=== PATIENT | male | born 1950 | race Caucasian/White ===

== ENCOUNTER 2021-04-07 15:42 | Inpatient (IN) | payer MEDICARE ==
[~2021-04-07] VITALS: Ht 177.8 cm; Wt 93.1 kg
[~2021-04-07 15:42] MED LIST: ASPIRIN ADULT L81 M1 PO; ATARAX,VISTARIL50 MG PO; FISH OIL 1,0001 EAC4 PO; GLUCOTROL XL10 MG PO; HYDRALAZINE10 MG PO; ISORDIL10 M1 PO; LACTULOSE20 GM/30 M PO; LANTUS SOL100 UNIT/1 SC; MELATONIN5 M7 PO; METOPROLOL SUCC25 M2 PO; OLANZAPINE5 MG PO; PRAVASTATIN SOD40 MG PO; VITAMIN D250 MCG PO; XARE15TA PO; ZYPREXA2.5 MG PO
[2021-04-07 16:11] VITALS: BP 137/59
[2021-04-07 16:38] LABS: BASO % 0.2 % (0.0-1.0); EOS # 0.1 10*3/uL (0.0-0.4); HEMATOCRIT 33.2 % (42.0-52.0); LYMPH % 9.1 % (27.0-41.0); MEAN CELL VOLUME 101.5 fl (80.0-94.0); MEAN CORPUSCULAR HGB 31.2 pg (27.0-31.0); MEAN CORPUSCULAR HGB CONC 30.7 g/dl (33.0-37.0); MEAN PLATELET VOLUME 11.6 fl (9.6-12.3); MONO % 9.2 % (3.0-9.0); NEUT # 8.9 10*3/uL (2.3-7.9); NEUT % 79.3 % (47.0-73.0); PLATELET COUNT AUTOMATED 135 10*3/uL (130-400); RED BLOOD COUNT 3.27 10*6/uL (4.50-5.90); RED CELL DISTRI WIDTH 13.5 % (0-14.5); WHITE BLOOD COUNT 11.2 10*3/uL (4.8-10.8)
[2021-04-07 16:52] VITALS: BP 121/55
[2021-04-07 16:52] LABS: CREATININE 2.92 mg/dL (0.70-1.30); POTASSIUM 4.7 mmol/L (3.5-5.1); TOTAL PROTEIN 5.9 gm/dL (6.4-8.2)
[2021-04-07 17:04] LABS: TOTAL CELLS COUNTED 100 #CELLS
[2021-04-07 17:05] LABS: PLATELET SUFFICIENCY NORMAL (NORMAL)
[2021-04-07] MEDS ORDERED: BIKTARVY 50-201 EACH PO (17:41)
[2021-04-07] MEDS ORDERED: ISORDIL10 M1 PO (17:46)
[2021-04-07] MEDS ORDERED: VITAMIN D350 MC2 PO (17:52)
[2021-04-07 18:37] VITALS: BP 115/58
[2021-04-07 20:00] VITALS: BP 134/82
[2021-04-08] VITALS: BP 161/51
[2021-04-08 06:47] LABS: CREATININE 2.89 mg/dL (0.70-1.30); TOTAL PROTEIN 6.3 gm/dL (6.4-8.2)
[2021-04-08 07:40] LABS: BASO % 0.3 % (0.0-1.0); EOS % 0.3 % (1.0-4.0); HEMATOCRIT 36.3 % (42.0-52.0); LYMPH # 0.9 10*3/uL (1.3-4.4); LYMPH % 6.9 % (27.0-41.0); MEAN CELL VOLUME 102.3 fl (80.0-94.0); MEAN CORPUSCULAR HGB 31.5 pg (27.0-31.0); MEAN CORPUSCULAR HGB CONC 30.9 g/dl (33.0-37.0); MEAN PLATELET VOLUME 11.4 fl (9.6-12.3); MONO # 0.8 10*3/uL (0.1-1.0); MONO % 6.5 % (3.0-9.0); NEUT % 84.9 % (47.0-73.0); PLATELET COUNT AUTOMATED 132 10*3/uL (130-400); RED BLOOD COUNT 3.55 10*6/uL (4.50-5.90); RED CELL DISTRI WIDTH 13.5 % (0-14.5); WHITE BLOOD COUNT 12.9 10*3/uL (4.8-10.8)
[2021-04-08 08:00] VITALS: BP 145/71
[2021-04-08 12:00] VITALS: BP 177/65
[2021-04-08 15:00] VITALS: BP 147/72
[2021-04-08 16:00] VITALS: BP 122/78
[2021-04-08 20:00] VITALS: BP 133/96
[2021-04-09] VITALS (10 sets, daily range): BP systolic 109–137; BP diastolic 42–84
[2021-04-09 06:13] LABS: BASO % 0.2 % (0.0-1.0); EOS # 0.2 10*3/uL (0.0-0.4); EOS % 1.6 % (1.0-4.0); HEMATOCRIT 35.1 % (42.0-52.0); LYMPH # 1.8 10*3/uL (1.3-4.4); LYMPH % 17.9 % (27.0-41.0); MEAN CORPUSCULAR HGB 30.8 pg (27.0-31.0); MEAN CORPUSCULAR HGB CONC 30.2 g/dl (33.0-37.0); MONO % 10.3 % (3.0-9.0); NEUT # 7.1 10*3/uL (2.3-7.9); NEUT % 69.4 % (47.0-73.0); PLATELET COUNT AUTOMATED 125 10*3/uL (130-400); RED BLOOD COUNT 3.44 10*6/uL (4.50-5.90); RED CELL DISTRI WIDTH 13.6 % (0-14.5); WHITE BLOOD COUNT 10.1 10*3/uL (4.8-10.8)
[2021-04-09 06:35] LABS: CREATININE 2.68 mg/dL (0.70-1.30)
[2021-04-10] VITALS: BP 114/56
[2021-04-10 06:20] LABS: CREATININE 3.07 mg/dL (0.70-1.30); POTASSIUM 5.7 mmol/L (3.5-5.1)
[2021-04-10 08:00] VITALS: BP 112/62; BP 123/59
[2021-04-10 12:00] VITALS: BP 116/60
[2021-04-10 16:00] VITALS: BP 115/54
[2021-04-10 20:00] VITALS: BP 142/63
[2021-04-11] VITALS: BP 115/49
[2021-04-11 05:30] VITALS: BP 117/57
[2021-04-11 06:03] LABS: CREATININE 3.53 mg/dL (0.70-1.30); POTASSIUM 5.7 mmol/L (3.5-5.1)
[2021-04-11 06:15] LABS: BASO % 0.2 % (0.0-1.0); EOS # 0.1 10*3/uL (0.0-0.4); EOS % 1.3 % (1.0-4.0); HEMATOCRIT 32.4 % (42.0-52.0); LYMPH # 1.6 10*3/uL (1.3-4.4); MEAN CELL VOLUME 102.5 fl (80.0-94.0); MEAN CORPUSCULAR HGB 31.3 pg (27.0-31.0); MEAN CORPUSCULAR HGB CONC 30.6 g/dl (33.0-37.0); MEAN PLATELET VOLUME 11.9 fl (9.6-12.3); MONO # 0.8 10*3/uL (0.1-1.0); MONO % 8.2 % (3.0-9.0); NEUT # 6.8 10*3/uL (2.3-7.9); NEUT % 72.7 % (47.0-73.0); PLATELET COUNT AUTOMATED 115 10*3/uL (130-400); RED BLOOD COUNT 3.16 10*6/uL (4.50-5.90); RED CELL DISTRI WIDTH 13.5 % (0-14.5); WHITE BLOOD COUNT 9.4 10*3/uL (4.8-10.8)
[2021-04-11 08:00] VITALS: BP 115/57
[2021-04-11 16:01] VITALS: BP 117/61
[2021-04-11 20:00] VITALS: BP 130/55
[2021-04-12] VITALS: BP 111/46
[2021-04-12 06:00] VITALS: BP 124/62
[2021-04-12 08:00] VITALS: BP 132/58
[2021-04-12 09:10] LABS: CREATININE 3.54 mg/dL (0.70-1.30); POTASSIUM 5.7 mmol/L (3.5-5.1)
[2021-04-12 12:00] VITALS: BP 142/57
[2021-04-12] MEDS ORDERED: APRESOLINE25 MG PO (12:03)
[2021-04-12] MEDS ORDERED: AMIODARONE HYD200 MG PO (12:03)
[2021-04-12] MEDS ORDERED: LASIX40 MG PO (12:03)
[2021-04-12] MEDS ORDERED: PACERONE400 MG PO (12:03)
== END 2021-04-12 16:44 | DRG 291 ==
LOC: ED 15:42 → EDHOLD 17:55 → 4E 17:55
PROVIDERS: Family Medicine; Internal Medicine; ADMIT Student in an Organized Health Care Education/Training Program; ATTEND Student in an Organized Health Care Education/Training Program
PROC: 5A2204Z Restoration of Cardiac Rhythm, Single (ICD-10-PCS; 2021-04-09)
PROC: 5A09357 Assistance with Respiratory Ventilation, Less than 24 Consecutive Hours, Continuous Positive Airway Pressure (ICD-10-PCS; principal; 2021-04-12)
DX: I50.23 Acute on chronic systolic (congestive) heart failure (principal); R65.11 Systemic inflammatory response syndrome (SIRS) of non-infectious origin with acute organ dysfunction; U07.1 COVID-19; E43 Unspecified severe protein-calorie malnutrition; N17.0 Acute kidney failure with tubular necrosis; J96.20 Acute and chronic respiratory failure, unspecified whether with hypoxia or hypercapnia; I48.92 Unspecified atrial flutter; I43 Cardiomyopathy in diseases classified elsewhere; I48.91 Unspecified atrial fibrillation; D53.9 Nutritional anemia, unspecified; E11.65 Type 2 diabetes mellitus with hyperglycemia; E78.5 Hyperlipidemia, unspecified; E87.5 Hyperkalemia; Z89.511 Acquired absence of right leg below knee; Z79.4 Long term (current) use of insulin; Z79.82 Long term (current) use of aspirin; Z79.899 Other long term (current) drug therapy; Z68.28 Body mass index [BMI] 28.0-28.9, adult